=== PATIENT | male | born 1955 | race Caucasian/White ===

== ENCOUNTER 2022-03-17 10:11 | Day surgery (SDC) | payer MEDICARE ==
[2012-08-14 07:47] VITALS: BP 139/78
[2022-03-17] MEDS ORDERED: Sodium Chloride 0.9(Preservative Free) 10 ML IJ ONE (10:12)
[2022-03-17] MEDS ORDERED: Depo-Medrol 40 MG/ML IM ONE (10:12)
[2022-03-17] MEDS ORDERED: Lactated Ringers 1,000 ML IV ONE (11:35)
[2022-03-17] MEDS ORDERED: DIPRIVAN 200 MG/20 ML IV ONE (11:45)
--- NOTE | 2022-03-18 18:30 | XRAY ---
38 seconds fluoroscopy time in surgery for right L4-S1 transforaminal ROBB.
--- NOTE | 2022-03-19 20:44 | XRAY ---
Indication: Right L4-S1 Transforaminal ROBB. Intraoperative fluoroscopy provided for 38 seconds. 4 digital spot images submitted for interpretation demonstrates posterior needle tips projecting over the expected right L4 and L5 nerve roots. Small amounts of contrast injected for needle tip placement. Correlate with intraoperative findings/report.
== END 2022-03-17 12:10 | disposition home or self-care (01) ==
LOC: SDC-PAIN 10:11
PROVIDERS: ATTEND Psychiatry & Neurology Pain Medicine
DX: M54.16 Radiculopathy, lumbar region (principal); Z79.899 Other long term (current) drug therapy
CPT/HCPCS: 64483; 64484; 72100; 77003; J1030; J2704; Q9966

== ENCOUNTER 2022-04-06 07:57 | Day surgery (SDC) | payer MEDICARE ==
[~2022-04-06 07:57] MED LIST: Ak-Dilate OPHTHALMIC*** 1.065 ML, Cyclogyl 1% OPHTH SOL 1.065 ML, GATIFLOXACIN 0.5% OPH... OP ONE; BETADINE 5% OPHTHALMIC 30 ML OP ONE; Lactated Ringers 1,000 ML IV SCH; NON-FORMULARY ITEM OP ONE; TETRACAINE 0.5% STERI-UNIT SOL OP ONE; cefUROXime sodium 0.005 GM in Sodium Chloride Flush 30 ML*** 0.5 ML IJ ONE
[2022-04-06] MEDS ORDERED: Zofran 4 MG/2 ML VIAL IV PRN (08:00)
[2022-04-06] MEDS ORDERED: ACETAZOLAMIDE 250 MG TABLET PO ONE (08:00)
[2022-04-06] MEDS ORDERED: Lactated Ringers 1,000 ML IV ONE (08:38)
[2022-04-06] MEDS ORDERED: DIPRIVAN 200 MG/20 ML IV ONE ×2 (09:57→10:07)
[2022-04-06 10:37] VITALS: BP 125/67; PULSE 74; O2SAT 92
[2022-04-06] MEDS ORDERED: Epinephrine Preservative Free 1 MG/ML INTRAOP ONE (16:00)
[2022-04-06] MEDS ORDERED: LIDOCAINE HCL 1% 50 MG/5 ML VL PF IJ ONE (16:00)
== END 2022-04-06 10:43 | disposition home or self-care (01) ==
LOC: SDC 07:57
PROVIDERS: ATTEND Ophthalmology
DX: H25.811 Combined forms of age-related cataract, right eye (principal)
CPT/HCPCS: C1780; J0171; J2001; J2704; A9270-GY

== ENCOUNTER 2022-04-20 21:53 | Emergency (ER) | payer MEDICARE ==
[2022-04-20] MEDS ORDERED: Sodium Chloride 0.9% 1000 ML 1,000 ML IV STA (22:07)
[2022-04-20] MEDS ORDERED: Zofran 4 MG/2 ML VIAL IV ONE (22:07)
[2022-04-20] MEDS ORDERED: Hydromorphone 1 mg/ml Injection IV ONE (22:07)
--- NOTE | 2022-04-20 22:12 | ERPHSYRPT ---
- History of Present Illness Time Seen by Provider: 04/20/22 22:09 Historian: patient Exam Limitations: no limitations Physician History: Patient is a 66-year-old male who presents with severe suprapubic and lower abdominal pain for 2 hours. The pain is extremely severe and he is uncertain as to its cause. He did have an epidural 4 weeks ago and has had problems with his bowel movements and urine output since. He denies any fever chills sweats. No nausea vomiting or diarrhea. Timing/Duration: today Activities at Onset: none Quality: cramping, stabbing Abdominal Pain Onset Location: suprapubic Pain Radiation: no radiation Severity of Pain-Max: severe Severity of Pain-Current: severe Modifying Factors: Improves With: nothing Associated Symptoms: denies symptoms Allergies/Adverse Reactions: No Known Drug Allergies Allergy (Verified 04/20/22 22:01) Home Medications: Omeprazole [Prilosec] 40 mg DAILY 09/08/15 [History] Aspirin EC 81 mg [Ecotrin 81 mg] 81 mg PO DAILY 04/06/22 [History] Atorvastatin Calcium [Lipitor] 20 mg PO DAILY 04/06/22 [History] Levothyroxine Sodium 50 Mcg [Synthroid 50 Mcg] 50 mcg PO DAILY 04/06/22 [History] Hx Tetanus, Diphtheria Vaccination/Date Given: No Hx Influenza Vaccination/Date Given: No Hx Pneumococcal Vaccination/Date Given: No - Review of Systems Constitutional: No Fever, No Chills Eyes: No Symptoms Ears, Nose, & Throat: No Symptoms Respiratory: No Cough, No Dyspnea Cardiac: No Chest Pain, No Edema, No Syncope Abdominal/Gastrointestinal: Abdominal Pain, No Nausea, No Vomiting, No Diarrhea Genitourinary Symptoms: No Dysuria Musculoskeletal: No Back Pain, No Neck Pain Skin: No Rash Neurological: No Dizziness, No Focal Weakness, No Sensory Changes Psychological: No Symptoms Endocrine: No Symptoms All Other Systems: Reviewed and Negative - Past Medical History Pertinent Past Medical History: Yes Neurological History: No Pertinent History ENT History: No Pertinent History Cardiac History: No Pertinent History Respiratory History: No Pertinent History Endocrine Medical History: No Pertinent History Musculoskeletal History: No Pertinent History GI Medical History: GERD History: No Pertinent History Psycho-Social History: No Pertinent History Male Reproductive Disorders: No Pertinent History Other Medical History: ACID REFLUX - Past Surgical History Past Surgical History: Yes Gastrointestinal: Appendectomy, Cholecystectomy - Social History Smoking Status: Former smoker Exposure to second hand smoke: No Drug Use: none Patient Lives Alone: No - Nursing Vital Signs Nursing Vital Signs: Initial Vital Signs Temperature 99.1 F 04/20/22 22:05 Pulse Rate 87 04/20/22 22:05 Respiratory Rate 24 04/20/22 22:05 Blood Pressure 172/110 04/20/22 22:05 O2 Sat by Pulse Oximetry 99 04/20/22 22:05 Pain Scale Pain Intensity 5 - Physical Exam General Appearance: moderate distress, alert Eye Exam: PERRL/EOMI, eyes nml inspection Ears, Nose, Throat Exam: normal ENT inspection, pharynx normal, moist mucous membranes Neck Exam: normal inspection, non-tender, supple, full range of motion Respiratory Exam: normal breath sounds, lungs clear, No respiratory distress Cardiovascular Exam: regular rate/rhythm, normal heart sounds Gastrointestinal/Abdomen Exam: tenderness (In the suprapubic area), guarding, No mass, No rebound Male Genitalia Exam: normal genitalia Rectal Exam: deferred Back Exam: normal inspection, normal range of motion, No CVA tenderness, No vertebral tenderness Extremity Exam: normal inspection, normal range of motion, pelvis stable Neurologic Exam: alert, oriented x 3, cooperative, normal mood/affect, nml cerebellar function, sensation nml, No motor deficits Skin Exam: normal color, warm, dry - Course Nursing assessment & vital signs reviewed: Yes - CT Exams Abdomen/Pelvis CT Interpretation: Tele-radiologist Report Ordered Tests: Active Orders 24 hr Category Date Time Status IV Insertion STAT Care 04/20/22 22:07 Active ABDOMEN AND PELVIS W CONTRAST [CT] Stat Exams 04/20/22 22:08 Taken AMYLASE Stat Lab 04/20/22 22:15 Completed CBC W DIFF Stat Lab 04/20/22 22:15 Completed CMP Stat Lab 04/20/22 22:15 Completed LIPASE Stat Lab 04/20/22 22:15 Completed Lactic Acid Stat Lab 04/20/22 22:07 Completed UA W/RFX CULTURE Stat Lab 04/20/22 22:15 Completed Medication Summary Discontinued Medications Generic Name Dose Route Start Last Admin Trade Name Freq PRN Reason Stop Dose Admin Hydromorphone HCl 1 mg 04/20/22 22:07 04/20/22 22:25 Hydromorphone 1 Mg/1ml Inj 1 Mg/Ml Syringe IV 04/20/22 22:08 1 mg STAT ONE Administration Hydromorphone HCl Confirm 04/20/22 22:23 Hydromorphone 1 Mg/1ml Inj 1 Mg/Ml Syringe Administered 04/20/22 22:24 Dose 1 mg .ROUTE .STK-MED ONE Sodium Chloride 1,000 mls @ 999 mls/hr 04/20/22 22:07 04/20/22 22:25 Sodium Chloride 0.9% 1000 Ml IV 04/20/22 23:07 999 mls/hr .Q1H1M STA Administration Sodium Chloride Confirm 04/20/22 22:23 Sodium Chloride 0.9% 1000 Ml Administered 04/20/22 22:24 Dose 1,000 mls @ ud .ROUTE .STK-MED ONE Ondansetron HCl 4 mg 04/20/22 22:07 04/20/22 22:25 Ondansetron Hcl 4 Mg/2 Ml Vial IV 04/20/22 22:08 4 mg STAT ONE Administration Ondansetron HCl Confirm 04/20/22 22:23 Ondansetron Hcl 4 Mg/2 Ml Vial Administered 04/20/22 22:24 Dose 4 mg .ROUTE .STK-MED ONE Lab/Rad Data: Laboratory Result Diagrams 04/20/22 22:15 04/20/22 22:15 Laboratory Results 04/20/22 04/20/22 04/20/22 Range/Units 22:15 22:15 22:15 WBC 12.2 H (4.0-10.5) x10^3/uL RBC 5.08 (4.1-5.6) x10^6/uL Hgb 15.6 (12.5-18.0) g/dL Hct 46.8 (42-50) % MCV 92.1 (78-100) fL MCH 30.7 (26-32) pg MCHC 33.3 (32-36) g/dL RDW 12.2 (11.5-14.0) % Plt Count 181 (150-450) x10^3/uL MPV 10.6 (7.5-11.0) fL Gran % 84.0 H (36.0-66.0) % Immature Gran % (Auto) 0.2 (0.00-0.4) % Nucleat RBC Rel Count 0.0 (0.00-0.1) % Eos # (Auto) 0.03 (0-0.5) x10^3/uL Immature Gran # (Auto) 0.02 (0.00-0.03) x10^3u/L Absolute Lymphs (auto) 0.80 L (1.0-4.6) x10^3/uL Absolute Monos (auto) 1.07 (0.0-1.3) x10^3/uL Absolute Nucleated RBC 0.00 (0.00-0.01) x10^3u/L Lymphocytes % 6.6 L (24.0-44.0) % Monocytes % 8.8 (0.0-12.0) % Eosinophils % 0.2 (0.00-5.0) % Basophils % 0.2 (0.0-0.4) % Absolute Granulocytes 10.21 H (1.4-6.9) x10^3/uL Basophils # 0.02 (0-0.4) x10^3/uL Sodium 140 (137-145) mmol/L Potassium 3.7 (3.5-5.1) mmol/L Chloride 106 (98-107) mmol/L Carbon Dioxide 24 (22-30) mmol/L Anion Gap 13.6 (5-15) MEQ/L BUN 18 (9-20) mg/dL Creatinine 0.93 (0.66-1.25) mg/dL Estimated GFR > 60.0 ML/MIN Glucose 122 H (74-106) mg/dL Lactic Acid (0.4-2.0) Calcium 9.3 (8.4-10.2) mg/dL Total Bilirubin 0.70 (0.2-1.3) mg/dL AST 36 (17-59) U/L ALT 29 (0-50) U/L Alkaline Phosphatase 96 (38-126) U/L Serum Total Protein 7.3 (6.3-8.2) g/dL Albumin 4.3 (3.5-5.0) g/dL Amylase 109 (30-110) U/L Lipase 137 (23-300) U/L Urinalys Dipstick Clnc MAIN LAB Urine Color YELLOW (YELLOW) Urine Appearance CLEAR (CLEAR) Urine pH 7.0 (5-6) Ur Specific [place] 1.025 (1.005-1.025) POC Urine Protein Conf NEGATIVE (Negative) Urine Ketones NEGATIVE (NEGATIVE) Urine Nitrite NEGATIVE (NEGATIVE) Urine Bilirubin NEGATIVE (NEGATIVE) Urine Urobilinogen 1 (0-1) mg/dL Urine Leukocytes NEGATIVE (NEGATIVE) Urine WBC (Auto) NONE (0-5) /HPF Urine RBC (Auto) NONE (0-2) /HPF U Epithel Cells (Auto) NONE (FEW) /HPF Urine Bacteria (Auto) NONE (NEGATIVE) /HPF Urine RBC NEGATIVE (0-5) Loi/ul Urine Mucus (Auto) SLIGHT (NEGATIVE) /HPF Ur Culture Indicated? NO Urine Glucose 100 (NEGATIVE) mg/dL 04/20/22 Range/Units 22:07 WBC (4.0-10.5) x10^3/uL RBC (4.1-5.6) x10^6/uL Hgb (12.5-18.0) g/dL Hct (42-50) % MCV (78-100) fL MCH (26-32) pg MCHC (32-36) g/dL RDW (11.5-14.0) % Plt Count (150-450) x10^3/uL MPV (7.5-11.0) fL Gran % (36.0-66.0) % Immature Gran % (Auto) (0.00-0.4) % Nucleat RBC Rel Count (0.00-0.1) % Eos # (Auto) (0-0.5) x10^3/uL Immature Gran # (Auto) (0.00-0.03) x10^3u/L Absolute Lymphs (auto) (1.0-4.6) x10^3/uL Absolute Monos (auto) (0.0-1.3) x10^3/uL Absolute Nucleated RBC (0.00-0.01) x10^3u/L Lymphocytes % (24.0-44.0) % Monocytes % (0.0-12.0) % Eosinophils % (0.00-5.0) % Basophils % (0.0-0.4) % Absolute Granulocytes (1.4-6.9) x10^3/uL Basophils # (0-0.4) x10^3/uL Sodium (137-145) mmol/L Potassium (3.5-5.1) mmol/L Chloride (98-107) mmol/L Carbon Dioxide (22-30) mmol/L Anion Gap (5-15) MEQ/L BUN (9-20) mg/dL Creatinine (0.66-1.25) mg/dL Estimated GFR ML/MIN Glucose (74-106) mg/dL Lactic Acid 1.5 (0.4-2.0) Calcium (8.4-10.2) mg/dL Total Bilirubin (0.2-1.3) mg/dL AST (17-59) U/L ALT (0-50) U/L Alkaline Phosphatase (38-126) U/L Serum Total Protein (6.3-8.2) g/dL Albumin (3.5-5.0) g/dL Amylase (30-110) U/L Lipase (23-300) U/L Urinalys Dipstick Clnc Urine Color (YELLOW) Urine Appearance (CLEAR) Urine pH (5-6) Ur Specific [place] (1.005-1.025) POC Urine Protein Conf (Negative) Urine Ketones (NEGATIVE) Urine Nitrite (NEGATIVE) Urine Bilirubin (NEGATIVE) Urine Urobilinogen (0-1) mg/dL Urine Leukocytes (NEGATIVE) Urine WBC (Auto) (0-5) /HPF Urine RBC (Auto) (0-2) /HPF U Epithel Cells (Auto) (FEW) /HPF Urine Bacteria (Auto) (NEGATIVE) /HPF Urine RBC (0-5) Loi/ul Urine Mucus (Auto) (NEGATIVE) /HPF Ur Culture Indicated? Urine Glucose (NEGATIVE) mg/dL - Progress Progress: unchanged - Departure Departure Disposition: Home Clinical Impression: Diverticulitis Condition: Stable Critical Care Time: No Referrals: ABRAHAM GARCIA MD [Primary Care Provider] - Follow up/PCP as directed Instructions: Diverticulitis (DC) Prescriptions: Hydrocodone/Acetaminophen [Hydrocodone-Acetamin 5-325 mg] 1 tab PO Q6HPRN PRN 3 Days #12 tablet MDD 4 PRN Reason: Pain Amox Tr/Potass Clav. 875 mg [Augmentin 875-125 Tablet] 875 mg PO BID 10 Days #20 tablet Metronidazole 500 mg [Flagyl 500 MG] 500 mg PO TID 10 Days #30 tablet
[2022-04-20 22:23] LABS: Absolute Neutrophil Ct (ANC) 10.21 x10^3/uL (1.4-6.9); Basophil (Absolute #) 0.02 x10^3/uL (0-0.4); Eosinophil % 0.2 % (0.00-5.0); Eosinophil (Absolute #) 0.03 x10^3/uL (0-0.5); Hematocrit 46.8 % (42-50); Hemoglobin 15.6 g/dL (12.5-18.0); Lymphocytes % 6.6 % (24.0-44.0); Mean Cell Volume 92.1 fL (78-100); Mean Corpuscular Hemoglobin 30.7 pg (26-32); Mean Corpuscular Hgb Concent. 33.3 g/dL (32-36); Mean Platelet Volume 10.6 fL (7.5-11.0); Monocyte (Absolute #) 1.07 x10^3/uL (0.0-1.3); Monocytes % 8.8 % (0.0-12.0); Platelet Count 181 x10^3/uL (150-450); Red Blood Count 5.08 x10^6/uL (4.1-5.6); Red Cell Distribution Width 12.2 % (11.5-14.0); White Blood Count 12.2 x10^3/uL (4.0-10.5)
[2022-04-20] MEDS ORDERED: Hydromorphone 1 mg/ml Injection ONE (22:23)
[2022-04-20] MEDS ORDERED: Sodium Chloride 0.9% 1000 ML 1,000 ML ONE (22:23)
[2022-04-20] MEDS ORDERED: Zofran 4 MG/2 ML VIAL ONE (22:23)
[2022-04-20 22:25] LABS: Appearance CLEAR (CLEAR); Bilirubin NEGATIVE (NEGATIVE); Glucose 100 mg/dL (NEGATIVE); Ketones NEGATIVE (NEGATIVE)
[2022-04-20 22:26] LABS: Dipstick done @ ? MAIN LAB; Nitrite NEGATIVE (NEGATIVE); Protein,Urine Dip NEGATIVE (Negative); RBC NEGATIVE Ery/ul (0-5); Specific Gravity 1.025 (1.005-1.025); Urobilinogen 1 mg/dL (0-1)
[2022-04-20 22:27] LABS: Mucus SLIGHT /HPF (NEGATIVE)
[2022-04-20 22:29] LABS: Urine Cultured Indicated? NO
[2022-04-20 22:36] LABS: ALBUMIN 4.3 g/dL (3.5-5.0); ALKALINE PHOSPHATASE 96 U/L (38-126); AMYLASE 109 U/L (30-110); ANION GAP 13.6 MEQ/L (5-15); BLOOD UREA NITROGEN 18 mg/dL (9-20); CHLORIDE 106 mmol/L (98-107); Calcium 9.3 mg/dL (8.4-10.2); Carbon Dioxide 24 mmol/L (22-30); Creatinine 1 0.93 mg/dL (0.66-1.25); EST GLOMERULAR FILTRATION RATE > 60.0 ML/MIN; Glucose 122 mg/dL (74-106); LIPASE 137 U/L (23-300); Potassium 3.7 mmol/L (3.5-5.1); SGOT/AST 36 U/L (17-59); SGPT/ALT 29 U/L (0-50); SODIUM 140 mmol/L (137-145); Total Protein 7.3 g/dL (6.3-8.2)
[2022-04-21] MEDS ORDERED: PIPERACILLIN/TAZOBACTAM 4.5 GM in Sodium Chloride 100ML MINI-BAG PLUS 100 ML IV ONE (00:07)
[2022-04-21] MEDS ORDERED: Hydromorphone 1 mg/ml Injection IV ONE (00:09)
[2022-04-21] MEDS ORDERED: PIPERACILLIN/TAZOBACTAM IV ONE (00:19)
[2022-04-21] MEDS ORDERED: Hydromorphone 1 mg/ml Injection ONE (00:19)
[2022-04-21] MEDS ORDERED: Sodium Chloride 100ML MINI-BAG PLUS 100 ML IV ONE (00:20)
[2022-04-21 01:17] VITALS: BP 126/78; PULSE 72; O2SAT 97
--- NOTE | 2022-04-21 09:43 | XRAY ---
Indication: Abdomen pain. Constipation. Multiple contiguous axial images obtained through the abdomen and pelvis without contrast. Impression: None Lung bases clear. Heart not enlarged. Stomach distended with food/fluid. Noncontrasted stomach and bowel loops appear nonobstructed. Mild scattered colonic fecal debris greatest in ascending and transverse colon. Also scattered colonic diverticulosis, greatest sigmoid where there is short segment of moderate circumferential wall thickening with stranding favoring diverticulitis. No free fluid/air. Previous cholecystectomy and appendectomy reported. Remaining liver, pancreas, spleen, adrenal glands, kidneys, ureters, and bladder are unremarkable for noncontrast exam. Mild scattered aortoiliac calcifications without AAA. Osseous structures intact with mild degenerative changes throughout the thoracolumbar spine and both hips. Small fatty right inguinal hernia. Impression: 1. Sigmoid diverticulitis without complications. 2. Chronic findings including arteriosclerotic disease, fatty right inguinal hernia, and chronic bony findings. Comment: Preliminary interpretation made by [facility]. No critical discrepancy.
== END 2022-04-21 01:14 | disposition home or self-care (01) ==
LOC: ED 21:53
DX: K57.92 Diverticulitis of intestine, part unspecified, without perforation or abscess without bleeding (principal); R10.2 Pelvic and perineal pain; R10.30 Lower abdominal pain, unspecified; Z79.891 Long term (current) use of opiate analgesic; Z79.899 Other long term (current) drug therapy
CPT/HCPCS: 36000; 36415; 74177; 80053; 81015; 82150; 83605; 83690; 85025; 96365; 96374; 96375; 99284; J1170; J2405; J2543